=== PATIENT | male | born 1955 | race Hispanic/Latino ===

== ENCOUNTER 2019-03-17 06:30 | Inpatient (IN) | payer OTHER, SELFPAY ==
--- OUTSIDE RECORDS SUMMARY | 2019-03-17 06:33 | XMS REPORT ---
:1955 [facility] [address] [place] [address] Dr. Olmos [address] [place] [id number] Care Team Providers Name Role Phone Unavailable Unavailable Unavailable Problems This patient has no known problems. Allergies, Adverse Reactions, Alerts This patient has no known allergies or adverse reactions. Medications This patient has no known medications.
[2019-03-17] MEDS ORDERED: METOPROLOL TAR 50 MG TAB ONE (07:00)
[2019-03-17] MEDS ORDERED: ENOXAPARIN 100 MG/ML SYR SQ ONE (07:00)
--- NOTE | 2019-03-17 07:00 | ER ---
Nurse's Notes [facility] Name: Emeka Smart Jr Age: 63 yrs Sex: Male : 1955 Arrival Date: 03/17/2019 Time: 06:31 Bed 14 Private MD: Diagnosis: Chest pain, unspecified;Atrial fibrillation and flutter-W/ RVR, NEW ONSET;Obesity, unspecified;Unspecified kidney failure-INSUFFICENCY Presentation: 03/17 06:37 Acuity: DWAINE 2 dm5 06:41 Presenting complaint: Patient states: I felt my heart racing and pounding this morning. jv1 Transition of care: patient was not received from another setting of care. Onset of symptoms was March 17, 2019 at 05:10. Risk Assessment: Do you want to hurt yourself or someone else? Patient reports no desire to harm self or others. Initial Sepsis Screen: Does the patient meet any 2 criteria? No. Patient's initial sepsis screen is negative. Does the patient have a suspected source of infection? No. Patient's initial sepsis screen is negative. Care prior to arrival: None. 06:41 Method Of Arrival: Wheelchair jv1 Triage Assessment: 06:45 General: Appears in no apparent distress. comfortable, obese, well groomed, Behavior is jv1 calm, cooperative. Cardiovascular: Heart tones S1 present Capillary refill < 3 seconds Pulses are all present. Rhythm is atrial fibrillation. Respiratory: Airway is patent Respiratory effort is even, unlabored, Respiratory pattern is regular, symmetrical, Breath sounds are clear bilaterally. GI: Abdomen is round obese, Bowel sounds present X 4 quads. : No signs and/or symptoms were reported regarding the genitourinary system. Derm: Skin is intact, is healthy with good turgor. Musculoskeletal: Circulation, motion, and sensation intact. Capillary refill < 3 seconds. 06:48 Pain: Complains of pain in chest Pain does not radiate. Quality of pain is described as jv1 pulsating, Pain began suddenly, 2 hours ago. EENT: No signs and/or symptoms were reported regarding the EENT system. Neuro: Level of Consciousness is awake, alert, obeys commands, Oriented to person, place, time, situation. Historical: - Allergies: 06:51 No Known Allergies; jv1 - Home Meds: 06:51 Aspirin Oral [Active]; amlodipine 5 mg tab [Active]; atenolol 25 mg Oral tab [Active]; jv1 lisinopril 40 mg Oral tab [Active]; - PMHx: 06:51 Hypertension; GERD; Gout; jv1 - PSHx: 06:51 kidney biopsy; jv1 - Immunization history:: Adult Immunizations. - Social history:: Smoking status: Patient/guardian denies using tobacco, Stopped _ months ago .5. - Ebola Screening: : No symptoms or risks identified at this time. - Family history:: not pertinent. Screenin:15 Abuse screen: Denies threats or abuse. Nutritional screening: No deficits noted. jv1 Tuberculosis screening: No symptoms or risk factors identified. Fall Risk None identified. Assessment: 06:59 General: Appears in no apparent distress. uncomfortable, well groomed. Pain: Complains jv1 of pain in chest Pain does not radiate. Pain currently is 7 out of 10 on a pain scale. Quality of pain is described as pulsating, Pain began 2 hours ago. Neuro: Level of Consciousness is awake, alert, obeys commands, Oriented to person, place, time, situation. Cardiovascular: Reports chest pain, Heart tones present Capillary refill < 3 seconds Rhythm is irregular Chest pain is described as Pain is 7 out of 10 on a pain scale. he said his chest pain is more of a discomfort. Respiratory: Airway is patent Respiratory effort is even, unlabored, Breath sounds are clear bilaterally. GI: Abdomen is round non-distended, obese, Bowel sounds present X 4 quads. : No signs and/or symptoms were reported regarding the genitourinary system. EENT: No signs and/or symptoms were reported regarding the EENT system. Derm: Skin is intact, is healthy with good turgor. 09:10 General: Appears in no apparent distress. comfortable, Behavior is calm, cooperative, sv appropriate for age. Pain: Complains of pain in chest Pain currently is 3 out of 10 on a pain scale. Is intermittent. Neuro: Level of Consciousness is awake, alert, obeys commands, Oriented to person, place, time, situation, Moves all extremities. Full function. Neuro: Denies weakness dizziness. Respiratory: Airway is patent Respiratory effort is even, unlabored, Respiratory pattern is regular, symmetrical. Derm: Skin is pink, warm \T\ dry. 09:22 Reassessment: Informed Dr An of the resent vitals, pt is asymptomatic. Medication sv ordered to give NS 1L bolus. 10:03 Reassessment: Patient appears in no apparent distress at this time. Patient is alert, ca1 oriented x 3, equal unlabored respirations, skin warm/dry/pink. 10:05 Reassessment: BP elevated to 108/56. Notified Dr. An, ordered to go to the floor. ca1 Vital Signs: 06:44 BP 117 / 76; Pulse 110; Resp 19; Temp 98; Pulse Ox 96% on R/A; Weight 130.63 kg; Height jv1 5 ft. 8 in. (172.72 cm); Pain 0/10; 06:48 Weight 130.63 kg (R); dm5 07:00 BP 111 / 66; Pulse 92; Resp 19; Pulse Ox 99% on R/A; jv1 08:00 BP 93 / 70; Pulse 79; Resp 16; Pulse Ox 99% ; jv1 09:18 BP 86 / 64; Pulse 80; Resp 16; Pulse Ox 100% ; sv 10:03 BP 108 / 56; Pulse 75; Resp 17 S; Pulse Ox 97% on R/A; ca1 06:44 Body Mass Index 43.79 (130.63 kg, 172.72 cm) jv1 ED Course: 06:31 Patient arrived in ED. es 06:34 Chung Eller MD is Attending Physician. hazel 06:37 Triage completed. dm5 06:37 EKG done per protocol. Performed by ED Staff. Shown to ED physician. dm5 06:37 Patient has correct armband on for positive identification. Placed in gown. Bed in low jv1 position. Call light in reach. Side rails up X2. library monitor on. Pulse ox on. NIBP on. 06:37 Arm band placed on right wrist. jv1 06:37 Patient maintains SpO2 saturation greater than 95% on room air. jv1 06:58 Sudhakar An DO is Hospitalizing Provider. hazel 07:00 XRAY Chest (1 view) In Process Unspecified. EDMS 07:04 Inserted saline lock: 20 gauge in right antecubital area, using aseptic technique. mt Blood collected. 07:16 No provider procedures requiring assistance completed. Patient admitted, IV remains in jv1 place. 09:07 Kaylee, Romelia, RN is Primary Nurse. sv 09:10 Report received from Catherine AGUIRRE. sv Administered Medications: 07:10 Drug: Lovenox 1 mg/kg Route: Sub-Q; Site: abdomen; jv1 07:21 Follow up: Response: No adverse reaction jv1 07:10 Drug: Lopressor (metoprolol TARTRATE) 50 mg Route: PO; jv1 07:21 Follow up: Response: No adverse reaction jv1 07:10 Drug: Pepcid 20 mg Route: IVP; Site: right antecubital; jv1 07:21 Follow up: Response: No adverse reaction jv1 07:11 Drug: NS 0.9% 1000 ml Route: IV; Rate: 125 ml/hr; Site: right antecubital; jv1 10:04 Follow up: IV Status: Infusion continued upon admission ca1 07:11 Drug: Aspirin Chewable Tablet 162 mg Route: PO; jv1 07:21 Follow up: Response: No adverse reaction jv1 07:52 CANCELLED (Duplicate Order): Lopressor 5 mg IVP every 5 minutes; Hold for SBP < 100 or hazel HR < 60. x3 09:25 Drug: NS 0.9% 1000 ml Route: IV; Rate: 1000 ml; Site: right antecubital; sv 10:13 Follow up: IV Status: Infusion continued upon admission ca1 09:27 CANCELLED (Physician Discretion): Lopressor 5 mg IVP once; Hold for SBP <100 or HR <60. sv Outcome: 06:59 Decision to Hospitalize by Provider. hazel 10:12 Admitted to Med/surg accompanied by tech, via wheelchair, room 228, with chart, Report ca1 called to TIMOTHY Ye 10:12 Condition: stable 10:12 Instructed on the need for admit. 10:30 Patient left the ED. ca1 Signatures: Dispatcher [employer] EDUT Jany Vaughan RN RN dmRomelia Sosa, RN Chung Brown MD MD cha Salyer, Edna es Thompson, Moriah mt Vicente, Joyce, RN RN jVerónica Padilla RN RN ca1 Corrections: (The following items were deleted from the chart) 06:48 06:44 BP 117 / 76; Pulse 110bpm; Resp 19bpm; Pulse Ox 96% RA; Temp 98F; Pain 0/10; jv1 jv1 06:51 06:45 Pain: Denies pain. jv1 jv1
--- NOTE | 2019-03-17 07:00 | EDPHYS ---
Physician Documentation [facility] Name: Emeka Smart Jr Age: 63 yrs Sex: Male : 1955 Arrival Date: 03/17/2019 Time: 06:31 Bed 14 Private MD: ED Physician Chung Eller HPI: 03/17 06:55 This 63 yrs old Male presents to ER via Wheelchair with complaints of Chest hzael Pain. 06:55 The patient or guardian reports chest pain that is located primarily in the substernal hazel area. Onset: 2 day(s) ago. The pain does not radiate. Associated signs and symptoms: The patient has no apparent associated signs or symptoms. The chest pain is described as a heaviness. Modifying factors: The symptoms are alleviated by nothing. the symptoms are aggravated by nothing. Severity of pain: At its worst the pain was mild in the emergency department the pain is unchanged. The patient has not experienced similar symptoms in the past. Historical: - Allergies: 06:51 No Known Allergies; jv1 - Home Meds: 06:51 Aspirin Oral [Active]; amlodipine 5 mg tab [Active]; atenolol 25 mg Oral tab [Active]; jv1 lisinopril 40 mg Oral tab [Active]; - PMHx: 06:51 Hypertension; GERD; Gout; jv1 - PSHx: 06:51 kidney biopsy; jv1 - Immunization history:: Adult Immunizations. - Social history:: Smoking status: Patient/guardian denies using tobacco, Stopped _ months ago .5. - Ebola Screening: : No symptoms or risks identified at this time. - Family history:: not pertinent. ROS: 06:55 Constitutional: Negative for fever, chills, and weight loss, Eyes: Negative for injury, hazel pain, redness, and discharge, ENT: Negative for injury, pain, and discharge, Neck: Negative for injury, pain, and swelling, Respiratory: Negative for shortness of breath, cough, wheezing, and pleuritic chest pain, Abdomen/GI: Negative for abdominal pain, nausea, vomiting, diarrhea, and constipation, Back: Negative for injury and pain, : Negative for injury, bleeding, discharge, and swelling, MS/Extremity: Negative for injury and deformity, Skin: Negative for injury, rash, and discoloration, Neuro: Negative for headache, weakness, numbness, tingling, and seizure, Psych: Negative for depression, anxiety, suicide ideation, homicidal ideation, and hallucinations, Allergy/Immunology: Negative for hives, rash, and allergies, Endocrine: Negative for neck swelling, polydipsia, polyuria, polyphagia, and marked weight changes, Hematologic/Lymphatic: Negative for swollen nodes, abnormal bleeding, and unusual bruising. 06:55 Cardiovascular: Positive for chest pain, palpitations. Exam: 06:55 Constitutional: This is a well developed, well nourished patient who is awake, alert, hazel and in no acute distress. Head/Face: Normocephalic, atraumatic. Eyes: Pupils equal round and reactive to light, extra-ocular motions intact. Lids and lashes normal. Conjunctiva and sclera are non-icteric and not injected. Cornea within normal limits. Periorbital areas with no swelling, redness, or edema. ENT: Nares patent. No nasal discharge, no septal abnormalities noted. Tympanic membranes are normal and external auditory canals are clear. Oropharynx with no redness, swelling, or masses, exudates, or evidence of obstruction, uvula midline. Mucous membranes moist. Neck: Trachea midline, no thyromegaly or masses palpated, and no cervical lymphadenopathy. Supple, full range of motion without nuchal rigidity, or vertebral point tenderness. No Meningismus. Chest/axilla: Normal chest wall appearance and motion. Nontender with no deformity. No lesions are appreciated. Respiratory: Lungs have equal breath sounds bilaterally, clear to auscultation and percussion. No rales, rhonchi or wheezes noted. No increased work of breathing, no retractions or nasal flaring. Abdomen/GI: Soft, non-tender, with normal bowel sounds. No distension or tympany. No guarding or rebound. No evidence of tenderness throughout. Back: No spinal tenderness. No costovertebral tenderness. Full range of motion. Male : Normal genitalia with no discharge or lesions. Skin: Warm, dry with normal turgor. Normal color with no rashes, no lesions, and no evidence of cellulitis. MS/ Extremity: Pulses equal, no cyanosis. Neurovascular intact. Full, normal range of motion. Neuro: Awake and alert, GCS 15, oriented to person, place, time, and situation. Cranial nerves II-XII grossly intact. Motor strength 5/5 in all extremities. Sensory grossly intact. Cerebellar exam normal. Normal gait. Psych: Awake, alert, with orientation to person, place and time. Behavior, mood, and affect are within normal limits. 06:55 Cardiovascular: Rate: tachycardic, Rhythm: irregularly irregular, Pulses: Pulses are 4+ in bilateral radial, brachial, femoral, popliteal, posterior tibial and and dorsalis pedis arteries.. Heart sounds: normal, Edema: is not appreciated, JVD: is not appreciated. Vital Signs: 06:44 BP 117 / 76; Pulse 110; Resp 19; Temp 98; Pulse Ox 96% on R/A; Weight 130.63 kg; Height jv1 5 ft. 8 in. (172.72 cm); Pain 0/10; 06:48 Weight 130.63 kg (R); dm5 07:00 BP 111 / 66; Pulse 92; Resp 19; Pulse Ox 99% on R/A; jv1 08:00 BP 93 / 70; Pulse 79; Resp 16; Pulse Ox 99% ; jv1 09:18 BP 86 / 64; Pulse 80; Resp 16; Pulse Ox 100% ; sv 10:03 BP 108 / 56; Pulse 75; Resp 17 S; Pulse Ox 97% on R/A; ca1 06:44 Body Mass Index 43.79 (130.63 kg, 172.72 cm) jv1 MDM: 06:34 Patient medically screened. [facility] 06:57 Data reviewed: vital signs, nurses notes, lab test result(s), EKG, radiologic studies, hazel plain films. 03/17 06:35 Order name: Basic Metabolic Panel; Complete Time: 07:50 [facility] 03/17 06:35 Order name: CBC with Diff; Complete Time: 07:29 [facility] 03/17 06:35 Order name: LFT's; Complete Time: 07:50 [facility] 03/17 06:35 Order name: Magnesium; Complete Time: 07:50 [facility] 03/17 06:35 Order name: NT PRO-BNP; Complete Time: 07:50 [facility] 03/17 06:35 Order name: PT-INR; Complete Time: 07:29 [facility] 03/17 06:35 Order name: Troponin (emerg Dept Use Only); Complete Time: 07:50 [facility] 03/17 06:35 Order name: XRAY Chest (1 view); Complete Time: 09:31 [facility] 03/17 06:35 Order name: TSH; Complete Time: 07:50 [facility] 03/17 06:36 Order name: Lipase; Complete Time: 07:50 [facility] 03/17 07:52 Order name: Echo w/ Doppler [facility] 03/17 06:35 Order name: EKG; Complete Time: 06:37 [facility] 03/17 06:35 Order name: Cardiac monitoring; Complete Time: 07:11 [facility] 03/17 06:35 Order name: EKG - Nurse/Tech; Complete Time: 07:11 [facility] 03/17 06:35 Order name: IV Saline Lock; Complete Time: 07:11 [facility] 03/17 06:35 Order name: Labs collected and sent; Complete Time: 07:12 [facility] 03/17 06:35 Order name: O2 Per Protocol; Complete Time: 07:12 [facility] 03/17 06:35 Order name: O2 Sat Monitoring; Complete Time: 07:12 [facility] Administered Medications: 07:10 Drug: Lovenox 1 mg/kg Route: Sub-Q; Site: abdomen; jv1 07:21 Follow up: Response: No adverse reaction jv1 07:10 Drug: Lopressor (metoprolol TARTRATE) 50 mg Route: PO; jv1 07:21 Follow up: Response: No adverse reaction jv1 07:10 Drug: Pepcid 20 mg Route: IVP; Site: right antecubital; jv1 07:21 Follow up: Response: No adverse reaction jv1 07:11 Drug: NS 0.9% 1000 ml Route: IV; Rate: 125 ml/hr; Site: right antecubital; jv1 10:04 Follow up: IV Status: Infusion continued upon admission ca1 07:11 Drug: Aspirin Chewable Tablet 162 mg Route: PO; jv1 07:21 Follow up: Response: No adverse reaction jv1 07:52 CANCELLED (Duplicate Order): Lopressor 5 mg IVP every 5 minutes; Hold for SBP < 100 or hazel HR < 60. x3 09:25 Drug: NS 0.9% 1000 ml Route: IV; Rate: 1000 ml; Site: right antecubital; sv 10:13 Follow up: IV Status: Infusion continued upon admission ca1 09:27 CANCELLED (Physician Discretion): Lopressor 5 mg IVP once; Hold for SBP <100 or HR <60. sv Disposition: 03/17/19 06:59 Hospitalization ordered by Sudhakar An for Inpatient Admission. Preliminary diagnosis are Chest pain, unspecified, Atrial fibrillation and flutter - W/ RVR, NEW ONSET, Obesity, unspecified, Unspecified kidney failure - INSUFFICENCY. - Bed requested for Telemetry/MedSurg (Inpatient). - Status is Inpatient Admission. ca1 - Condition is Stable. - Problem is new. - Symptoms have improved. UTI on Admission? No Signatures: Dispatcher [employer] EDMS Chelsea Dean, DERREK-C VICE PRESIDENT [employer] Tracee Hunter Stephanie, RN RN Chung Garcia MD MD cha Vicente, Joyce, RN RN jv1 AcVerónica benitez RN RN ca1 Corrections: (The following items were deleted from the chart) 07:13 06:59 Hospitalization Ordered by Sudhakar An DO for Inpatient Admission. Preliminary bd diagnosis is Chest pain, unspecified; Atrial fibrillation and flutter - W/ RVR, NEW ONSET; Obesity, unspecified. Bed requested for Telemetry/MedSurg (Inpatient). Status is Inpatient Admission. Condition is Stable. Problem is new. Symptoms have improved. UTI on Admission? No. hazel 07:18 07:13 03/17/2019 06:59 Hospitalization Ordered by Sudhakar An DO for Inpatient bd Admission. Preliminary diagnosis is Chest pain, unspecified; Atrial fibrillation and flutter - W/ RVR, NEW ONSET; Obesity, unspecified. Bed requested for Telemetry/MedSurg (Inpatient). Status is Inpatient Admission. Condition is Stable. Problem is new. Symptoms have improved. UTI on Admission? No. bd 07:51 07:18 03/17/2019 06:59 Hospitalization Ordered by Sudhakar An DO for Inpatient hazel Admission. Preliminary diagnosis is Chest pain, unspecified; Atrial fibrillation and flutter - W/ RVR, NEW ONSET; Obesity, unspecified. Bed requested for Telemetry/MedSurg (Inpatient). Status is Inpatient Admission. Condition is Stable. Problem is new. Symptoms have improved. UTI on Admission? No. bd 07:52 06:54 Lopressor 5 mg IVP every 5 minutes; Hold for SBP < 100 or HR < 60. x3 ordered. mago 07:56 07:51 03/17/2019 06:59 Hospitalization Ordered by Sudhakar An DO for Inpatient bd Admission. Preliminary diagnosis is Chest pain, unspecified; Atrial fibrillation and flutter - W/ RVR, NEW ONSET; Obesity, unspecified; Unspecified kidney failure - INSUFFICENCY. Bed requested for Telemetry/MedSurg (Inpatient). Status is Inpatient Admission. Condition is Stable. Problem is new. Symptoms have improved. UTI on Admission? No. hazle 09:27 07:52 Lopressor 5 mg IVP once; Hold for SBP <100 or HR <60. ordered. hazel sv 09:27 09:26 Lopressor 5 mg IVP once; Hold for SBP <100 or HR <60. ordered. sv sv 10:30 07:56 03/17/2019 06:59 Hospitalization Ordered by Sudhakar An DO for Inpatient ca1 Admission. Preliminary diagnosis is Chest pain, unspecified; Atrial fibrillation and flutter - W/ RVR, NEW ONSET; Obesity, unspecified; Unspecified kidney failure - INSUFFICENCY. Bed requested for Telemetry/MedSurg (Inpatient). Status is Inpatient Admission. Condition is Stable. Problem is new. Symptoms have improved. UTI on Admission? No. bd
[2019-03-17] MEDS ORDERED: ENOXAPARIN 30 MG/0.3 ML SQ ONE (07:01)
[2019-03-17] MEDS ORDERED: FAMOTIDINE 20 MG/2 ML VIAL IV ONE (07:01)
[2019-03-17] MEDS ORDERED: NA CHLORIDE 0.9% 1,000 ML ONE ×2 (07:11→09:24)
[2019-03-17] MEDS ORDERED: ASPIRIN 81 MG CHEWABLE TABLET ONE (07:11)
[2019-03-17 07:19] LABS: Absolute Lymphocytes (CBC) 1.3 K/uL (0.7-4.9); Basophils % 1.4 % (0-1.3); Hematocrit 39.9 % (39.6-49.0); Lymphocytes % 16.5 % (15.3-44.8); MPV 9.5 fL (7.6-11.3)
[2019-03-17 07:20] LABS: Protime INR 1.09
[2019-03-17 07:44] LABS: ALT/SGPT 39 U/L (12-78); AST/SGOT 27 U/L (15-37); Albumin 3.6 g/dL (3.4-5.0); Alkaline Phosphatase 73 U/L (45-117); BUN Blood Urea Nitrogen 37 mg/dL (7-18); Bicarbonate 21 mmol/L (21-32); Bilirubin Direct 0.1 mg/dL (0-0.2); Bilirubin Total 0.5 mg/dL (0.2-1.0); Glucose Level 134 mg/dL (74-106); Lipase 151 U/L (73-393); NT PRO-BNP 29 pg/mL (<125); Potassium 4.1 mmol/L (3.5-5.1); Protein, Total 6.8 g/dL (6.4-8.2); Sodium Level 141 mmol/L (136-145); Troponin (Emerg Dept Use Only) < 0.02 ng/mL (0.0-0.045)
--- NOTE | 2019-03-17 08:11 | RAD REPORT ---
EXAM DESCRIPTION: Winter Single View03/17/2019 7:00 am CLINICAL HISTORY: Chest pain COMPARISON: none FINDINGS: The lungs appear clear of acute infiltrate. The heart is normal size IMPRESSION: No acute abnormalities displayed
[2019-03-17] MEDS: SOTALOL HCL 80 MG TAB PO SCH ×4 (10:13→22:24)
[2019-03-17] MEDS ORDERED: ONDANSETRON 4 MG/2 ML VIAL IV PRN (10:13)
[2019-03-17] MEDS ORDERED: TRAMADOL HCL 50 MG TAB PO PRN (10:13)
[2019-03-17] MEDS: allopurinoL 100 MG TAB PO SCH (10:13)
[2019-03-17] MEDS: lisinopriL 5 MG TAB PO SCH (10:13)
[2019-03-17 10:55] VITALS: BMI 43.7
--- NOTE | 2019-03-17 11:25 | EKG ---
Test Date: 2019-03-17 Test Time: 06:32:00 Asset Availability Leader: OSBALDO MEASUREMENT RESULTS: Intervals: Rate: 107 TN: QRSD: 100 QT: 292 QTc: 389 [place]: P: TN: QRS: -25 T: 26 INTERPRETIVE STATEMENTS: Atrial fibrillation with rapid ventricular response Low voltage QRS Abnormal ECG Compared to ECG 10/31/2006 23:54:28 Low QRS voltage now present Sinus rhythm no longer present Electronically Signed On 03-17-19 11:23:45 [employer] [employer] by Yunior Travis
--- NOTE | 2019-03-17 11:40 | ECHO ---
HEIGHT: 5 ft 8 in WEIGHT: 287 lb 15.838 oz DATE OF STUDY: 03/17/[address]: Chung Eller MD 2-DIMENSIONAL: YES M.MODE: YES DOPPLER: YES COLOR FLOW: YES TDS: PORTABLE: DEFINITY: BUBBLE STUDY: DIAGNOSIS: ATRIAL FIBRILLATION CARDIAC HISTORY: CATHERIZATION: NO SURGERY: NO PROSTHETIC VALVE: NO PACEMAKER: NO MEASUREMENTS (cm) DIASTOLIC (NORMALS) SYSTOLIC (NORMALS) IVSd 1.2 (0.6-1.2) LA Diam 4.0 (1.9-4.0) LVEF 60% LVIDd 5.1 (3.5-5.7) LVIDs 3.4 (2.0-3.5) %FS 32% LVPWd 1.3 (0.6-1.2) Ao Diam 3.4 (2.0-3.7) 2 DIMENSIONAL ASSESSMENT: RIGHT ATRIUM: NORMAL LEFT ATRIUM: NORMAL RIGHT VENTRICLE: NORMAL LEFT VENTRICLE: NORMAL TRICUSPID VALVE: NORMAL MITRAL VALVE: NORMAL PULMONIC VALVE: NORMAL AORTIC VALVE: NORMAL PERICARDIAL EFFUSION: NONE AORTIC ROOT: NORMAL LEFT VENTRICULAR WALL MOTION: NORMAL DOPPLER/COLOR FLOW: NORMAL COMMENTS: ATRIAL FIBRILLATION RATE CONTROLLED. NORMAL LEFT VENTRICULAR SIZE AND FUNCTION. NORMAL LEFT SIZE NO THROMBUS. TECHNOLOGIST: DUSTIN ELIAS
[2019-03-17 13:31] LABS: CKMB Creatine Kinase MB 2.5 ng/mL (0.3-3.6); Creatine Phosphokinase 288 U/L (39-308); Troponin I < 0.02 ng/mL (0.0-0.045)
--- NOTE | 2019-03-17 14:32 | CON ---
Date of Consultation: 03/17/[address] An on 03/17/2019. I saw the patient on 03/17/2019. Reason For Consultation: Atrial fibrillation and chest pain. History Of Present Illness: Mr. Smart is a 63-year-old male, very healthy, otherwise no previous cardiac history. While he was working today, he developed this sudden onset palpitation with sharp chest pain. No nausea, vomiting, diaphoresis, PND, orthopnea, pedal edema, or syncope. D enied any recent fever or chills or cough or trauma. He was found to be in atrial fibrillation with a rapid ventricular response. He had taken his atenolol at home that he takes for normal blood press ure. He was given IV metoprolol. His heart rate was down into the 70s, but remained in atrial fibri llation. Betapace had been started. Lovenox had been started. The patient is asymptomatic now. Past Medical History: Includes hypertension. Allergies: NONE. Review of Systems: Negative. Social History: Negative. Family History: Negative. Medications: Include atenolol. Physical Examination: Vital Signs: Stable. Afebrile. Atrial fibrillation, rate 78. HEENT: Negative. Neck: Supple with no bruit. Chest: Clear to auscultation and percussion. Cardiac: Revealed an irregularly irregular rhythm and rate. No murmurs, gallops, or rubs. Abdomen: Benign. Extremities: Revealed no clubbing, cyanosis, or edema. Diagnostic Data: Showed a creatinine 1.47 and an EKG showed atrial fibrillation. Impression And Plan: New onset atrial fibrillation. I recommend Betapace, Lovenox, and when he goes home, he should be on Betapace as well as Xarelto. Echocardiogram is pending. He should have an ou tpatient stress test, Myoview as an outpatient. I will make arrangements for that. He can go home l ater on tonight or tomorrow morning depending what his rhythm does. NB/MODL Voice ID: [id number] Report ID: [id number]
--- NOTE | 2019-03-17 15:10 | P.HP ---
Certification for Inpatient Patient admitted to: Observation With expected LOS: <2 Midnights Patient will require the following post-hospital care: None Practitioner: I am a practitioner with admitting privileges, knowledge of patient current condition, hospital course, and medical plan of care. Services: Services provided to patient in accordance with Admission requirements found in Title 42 Section 412.3 of the Code of Federal Regulations Patient History Date of Service: 03/17/19 Primary Care Provider: Unknown Reason for admission: Palpitations History of Present Illness: 63-year-old male presented to the emergency room with palpitations and chest pain. Patient reported chest discomfort around 5:00 a.m.. He took his blood pressure and aspirin. He tried to lay down but still reported chest pain and palpitation. He denied any shortness of breath, headaches or dizziness. He came to the ER for further evaluation. Patient with history of hypertension, gout and tobacco abuse. Patient found to have atrial fibrillation with a rate anywhere between 90 and 120. Patient was given beta-kp therapy. Patient was admitted for further evaluation. When I saw the patient in the ER, patient stable. Allergies No Known Allergies Allergy (Verified 03/17/19 11:08) Home medications list reviewed: Yes Home Medications: Amlodipine [Norvasc] 5 mg PO DAILY 03/17/19 Pantoprazole [Protonix Tab] 40 mg PO DAILY 03/17/19 allopurinoL [Zyloprim] 300 mg PO DAILY 03/17/19 atenoloL [Tenormin] 25 mg PO DAILY 03/17/19 lisinopriL [Lisinopril] 40 mg PO DAILY 03/17/19 traMADol HCL [Ultram] 75 mg PO BIDP PRN 03/17/19 - Past Medical/Surgical History Has patient received pneumonia vaccine in the past: No Diabetic: No -: Gout -: Hypertension -: Tobacco abuse -: Chronic renal disease stage 3 -: History of liver biopsy Psychosocial/ Personal History: Patient lives at home - Family History Family History: Reviewed- Non-Contributory - Social History Smoking Status: Former smoker Alcohol use: Yes CD- Drugs: Yes Place of Residence: Home Review of Systems General: As per HPI Eyes: Unremarkable ENT: Unremarkable Respiratory: Unremarkable Cardiovascular: Chest Pain, Palpitations Gastrointestinal: Unremarkable Genitourinary: Unremarkable Musculoskeletal: Unremarkable Integumentary: Unremarkable Neurological: Unremarkable Lymphatics: Unremarkable Physical Examination - Vital Signs Temperature: 97.1 F Blood Pressure: 114/65 Pulse: 72 Respirations: 20 Pulse Ox (%): 98 - Physical Exam General: Alert, In no apparent distress, Oriented x3, Cooperative HEENT: Atraumatic Neck: Supple Respiratory: Clear to auscultation bilaterally, Normal air movement Cardiovascular: Irregular heart rate/rhythm (AFib rate around 90-100) Gastrointestinal: Normal bowel sounds, Soft and benign, Non-distended, No tenderness, No masses, No rebound, No guarding Musculoskeletal: No contractures, No erythema, No tenderness, No warmth Integumentary: No tenderness/swelling, No erythema, No warmth, No cyanosis Neurological: Normal speech, Normal strength at 5/5 x4 extr, Normal tone, Normal affect - Studies Laboratory Data (last 24 hrs) 03/17/19 07:03: PT 12.8 H, INR 1.09 03/17/19 07:03: WBC 7.8, Hgb 13.1 L, Hct 39.9, Plt Count 179 03/17/19 07:03: Sodium 141, Potassium 4.1, BUN 37 H, Creatinine 1.47 H, Glucose 134 H, Magnesium 2.0, Total Bilirubin 0.5, AST 27, ALT 39, Alkaline Phosphatase 73, Lipase 151 Assessment and Plan - Plan Impression: Palpitations secondary to atrial fibrillation with RVR Hypertension Chronic renal disease Gout Plan: The patient will be admitted for further evaluation and treatment. Will continue to monitor telemetry and cardiac enzymes. Will obtain tsh and free T4. Case discussed with cardiology. Will obtain echocardiogram. Patient started on Betapace and Lovenox at 1 milligram/kilogram subcu twice daily. If stable likely discharge in the next 24 hr likely to continue with Betapace and chronic anti coagulation therapy. Will continue to monitor closely. Will reassess tomorrow. Discharge Plan: Home Plan to discharge in: 24 Hours - Advance Directives Does patient have a Living Will: No Does patient have a Durable POA for Healthcare: No - Code Status/Comfort Care Code Status Assessed: Yes (Patient is full code) Time Spent Managing Pts Care (In Minutes): 55
[2019-03-17] MEDS: FAMOTIDINE 20 MG TAB PO SCH (20:40)
[2019-03-17 21:29] LABS: Creatine Phosphokinase 223 U/L (39-308); Troponin I < 0.02 ng/mL (0.0-0.045)
[2019-03-17 21:36] VITALS: O2SAT 97
[2019-03-17] MEDS: ACETAMINOPHEN 500 MG TAB PO PRN (22:30)
[2019-03-18] MEDS: SOTALOL HCL 80 MG TAB PO SCH (06:06)
[2019-03-18 06:21] LABS: Magnesium 2.1 mg/dL (1.8-2.4); Potassium 4.7 mmol/L (3.5-5.1)
[2019-03-18 06:28] LABS: Absolute Lymphocytes (CBC) 2.1 K/uL (0.7-4.9); Basophils % 1.1 % (0-1.3); Hematocrit 41.7 % (39.6-49.0); Lymphocytes % 26.3 % (15.3-44.8); MPV 9.2 fL (7.6-11.3); RBC Red Blood Cell Count 4.27 M/uL (4.33-5.43)
[2019-03-18] MEDS: allopurinoL 100 MG TAB PO SCH (08:34)
[2019-03-18] MEDS: FAMOTIDINE 20 MG TAB PO SCH (08:34)
[2019-03-18] MEDS: lisinopriL 5 MG TAB PO SCH (08:35)
[2019-03-18 08:37] VITALS: BP 104/69
[2019-03-18 08:52] VITALS: TEMP 97.2
[2019-03-18] MEDS ORDERED: TRAMADOL HCL 50 MG TAB PO PRN (09:51)
--- NOTE | 2019-03-18 09:55 | P.DS ---
Admission Date: 03/18/19 Discharge Date: 03/18/19 Primary Care Provider: Unknown Disposition: ROUTINE DISCHARGE Discharge Condition: GOOD Reason for Admission: Palpitations Consultations: Cardiology-Dr. Travis Procedures: ECHO: Ejection fraction 60% LEFT VENTRICULAR WALL MOTION: NORMAL DOPPLER/COLOR FLOW: NORMAL COMMENTS: ATRIAL FIBRILLATION RATE CONTROLLED. NORMAL LEFT VENTRICULAR SIZE AND FUNCTION. NORMAL LEFT SIZE NO THROMBUS. Medical Problem list: Palpitations secondary to atrial fibrillation with RVR Hypertension Chronic renal disease Gout Chronic pain Possible underlying chronic renal disease stage III Brief History of Present Illness: 63-year-old male presented to the emergency room with palpitations and chest pain. Patient reported chest discomfort around 5:00 a.m.. He took his blood pressure and aspirin. He tried to lay down but still reported chest pain and palpitation. He denied any shortness of breath, headaches or dizziness. He came to the ER for further evaluation. Patient with history of hypertension, gout and tobacco abuse. Patient found to have atrial fibrillation with a rate anywhere between 90 and 120. Patient was given beta-kp therapy. Patient was admitted for further evaluation. When I saw the patient in the ER, patient stable. Hospital Course: Patient presented with palpitations. Patient found to have new onset atrial fibrillation with RVR. Patient was seen and evaluated. Cardiology was consulted. Patient was placed on Betapace and anti coagulation therapy. Patient has done well. Echocardiogram unremarkable. No intervention required at this time. At discharge he will continue with Betapace 80 mg 1 pill twice daily and Xarelto 20 mg 1 pill daily. Education on Betapace, Xarelto and atrial fibrillation addressed and provided. Recommend follow up with cardiology in 1-2 weeks to follow up this hospitalization. Patient will likely require outpatient cardiac stress test as an outpatient. Patient with underlying hypertension. Medications have been adjusted. Due to the changes of above medication Norvasc 5 mg, lisinopril 40 mg, and atenolol 25 mg have been discontinued. Patient now on lisinopril 5 mg daily. At discharge he will continue with lisinopril 5 mg daily. Recommend follow up with cardiology to further monitor and address. Patient with history of gout. At discharge he will continue with his medication of allopurinol 300 mg daily. Patient with history of GERD. At discharge he will continue with Protonix 40 mg daily. Patient likely has underlying chronic renal disease stage III. Recommend to recheck BMP in 1-2 weeks to monitor his progress. Patient may benefit with nephrology evaluation as an outpatient. Patient with chronic pain. At discharge patient may continue with tramadol 75 mg twice daily as needed for pain. Further adjustment can be done by his PCP. Vital Signs/Physical Exam: Temp Pulse Resp BP Pulse Ox 97.2 F 80 15 104/69 97 03/18/19 08:00 03/18/19 08:35 03/18/19 08:00 03/18/19 08:35 03/18/19 08:00 General: Alert, In no apparent distress, Oriented x3, Cooperative HEENT: Atraumatic Neck: Supple Respiratory: Clear to auscultation bilaterally, Normal air movement Cardiovascular: Irregular heart rate/rhythm (A fib rate controlled. ) Gastrointestinal: Normal bowel sounds, Soft and benign, Non-distended, No tenderness, No masses, No rebound, No guarding Musculoskeletal: No erythema, No tenderness, No warmth Integumentary: No tenderness/swelling, No erythema, No warmth, No cyanosis Neurological: Normal speech, Normal strength at 5/5 x4 extr, Normal tone, Normal affect Laboratory Data at Discharge: WBC 7.9 K/uL (4.3-10.9) 03/18/19 05:34 Hgb 13.9 g/dL (13.6-17.9) 03/18/19 05:34 Hct 41.7 % (39.6-49.0) 03/18/19 05:34 Plt Count 175 K/uL (152-406) 03/18/19 05:34 PT 12.8 SECONDS (9.5-12.5) H 03/17/19 07:03 INR 1.09 03/17/19 07:03 Sodium 145 mmol/L (136-145) 03/18/19 05:34 Potassium 4.7 mmol/L (3.5-5.1) 03/18/19 05:34 BUN 26 mg/dL (7-18) H 03/18/19 05:34 Creatinine 1.32 mg/dL (0.55-1.3) H 03/18/19 05:34 Glucose 115 mg/dL (74-106) H 03/18/19 05:34 Magnesium 2.1 mg/dL (1.8-2.4) 03/18/19 05:34 Total Bilirubin 0.5 mg/dL (0.2-1.0) 03/17/19 07:03 AST 27 U/L (15-37) 03/17/19 07:03 ALT 39 U/L (12-78) 03/17/19 07:03 Alkaline Phosphatase 73 U/L (45-117) 03/17/19 07:03 Troponin I < 0.02 ng/mL (0.0-0.045) 03/17/19 20:50 Triglycerides 284 mg/dL (<150) H 03/18/19 05:34 Cholesterol 133 mg/dL (<200) 03/18/19 05:34 HDL Cholesterol 34 mg/dL (40-60) L 03/18/19 05:34 Cholesterol/HDL Ratio 3.91 03/18/19 05:34 Lipase 151 U/L (73-393) 03/17/19 07:03 Home Medications: Pantoprazole [Protonix Tab*] 40 mg PO DAILY 03/17/19 allopurinoL [Zyloprim*] 300 mg PO DAILY 03/17/19 traMADol HCL [Ultram*] 75 mg PO BIDP PRN 03/17/19 Rivaroxaban [Xarelto] 20 mg PO DAILY #30 tablet 03/18/19 Sotalol HCl [Betapace*] 80 mg PO BID 6AM 6PM #60 tab 03/18/19 lisinopriL [Prinivil*] 5 mg PO DAILY #30 tab 03/18/19 New Medications: lisinopriL [Prinivil*] 5 mg PO DAILY #30 tab Rivaroxaban [Xarelto] 20 mg PO DAILY #30 tablet Sotalol HCl [Betapace*] 80 mg PO BID 6AM 6PM #60 tab Patient Discharge Instructions: 1. Recommend follow up with his PCP in 1 week to follow up this hospitalization. 2. Patient presented with palpitations. Patient found to have new onset atrial fibrillation with RVR. Patient was seen and evaluated. Cardiology was consulted. Patient was placed on Betapace and anti coagulation therapy. Patient has done well. Echocardiogram unremarkable. No intervention required at this time. At discharge he will continue with Betapace 80 mg 1 pill twice daily and Xarelto 20 mg daily. Education on Betapace, Xarelto and atrial fibrillation addressed and provided. Recommend follow up with cardiology in 1-2 weeks to follow up this hospitalization. Patient will likely require outpatient cardiac stress test as an outpatient. 3. Patient with underlying hypertension. Medications have been adjusted. Due to the changes of above medication Norvasc 5 mg, lisinopril 40 mg, and atenolol 25 mg have been discontinued. Patient now on lisinopril 5 mg daily. At discharge he will continue with lisinopril 5 mg daily. Recommend follow up with cardiology to further monitor and address. 4. Patient with history of gout. At discharge he will continue with his medication of allopurinol 300 mg daily. 5. Patient with history of GERD. At discharge he will continue with Protonix 40 mg daily. 6. Patient likely has underlying chronic renal disease stage III. Recommend to recheck BMP in 1-2 weeks to monitor his progress. Patient may benefit with nephrology evaluation as an outpatient. 7. Patient with chronic pain. At discharge patient may continue with tramadol 75 mg twice daily as needed for pain. Further adjustment can be done by his PCP. Diet: AHA Activity: Fall precautions Time spent managing pt's care (in minutes): 55
[2019-03-18] MEDS: ACETAMINOPHEN 500 MG TAB PO PRN (11:11)
[2019-03-19] MEDS ORDERED: allopurinoL 300 MG TAB PO SCH (09:00)
[2019-03-19] MEDS ORDERED: PANTOPRAZOLE 40MG TABLET PO SCH (09:00)
== END 2019-03-18 11:54 | disposition home or self-care (01) | DRG 310 ==
LOC: ER 06:30 → ERHOLD 07:05 → 2ND 10:18 → OBSVTOIN 03-18 08:19
PROVIDERS: ADMIT Family Medicine; ATTEND Family Medicine
DX: I48.91 Unspecified atrial fibrillation (principal); M10.9 Gout, unspecified; N18.3 Chronic kidney disease, stage 3 (moderate); I10 Essential (primary) hypertension; G89.29 Other chronic pain; K21.9 Gastro-esophageal reflux disease without esophagitis
CPT/HCPCS: 36415; 71045; 80048; 80061; 80076; 82550; 82553; 83690; 83735; 83880; 84439; 84443; 84484; 85025; 85610; 93005; 93306; 96361; 96372; 96374; 99285; G0378; J1650; J7030